=== PATIENT | female | born 1970 | race Caucasian/White ===

== ENCOUNTER 2018-11-11 10:02 | Emergency (ER) | payer OTHER, BC ==
[2018-11-11 10:17] VITALS: BP 144/85; PULSE 87; TEMP 97.8; BMI 40.0
[2018-11-11] MEDS ORDERED: NAPROXEN 500 MG TABLET (FP) ONE (11:02)
[2018-11-11] MEDS ORDERED: CYCLOBENZAPRINE HCL 10 MG TABLET (FP) ONE (11:02)
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
[2018-11-11] MEDS ORDERED: KETOROLAC TROMETHAMINE 60 MG/2 ML VIAL IM ONE (11:18)
== END 2018-11-11 11:22 | disposition home or self-care (01) ==
LOC: JERFT 10:02
DX: S13.4XXA Sprain of ligaments of cervical spine, initial encounter (principal); M62.838 Other muscle spasm; V43.52XA Car driver injured in collision with other type car in traffic accident, initial encounter; Y92.414 Local residential or business street as the place of occurrence of the external cause; Y93.89 Activity, other specified; Y99.8 Other external cause status
CPT/HCPCS: 99281-25